=== PATIENT | female | born 1965 | race Caucasian/White ===

== ENCOUNTER → 2017-09-28 | Outpatient (CLI) | payer BC ==
[~2017-09-28] MED LIST: IBP800T PO; METR500T PO; ONDN4T PO; RANI-515 PO; SUCR1TAB PO
--- NOTE | 2017-09-29 18:12 | Diagnostic Imaging Report ---
Digital mammogram bilateral screening with 3-D tomosynthesis. This study was compared to the prior exam of 10/18/2011. At this time, there are no current complaints. The current study was also evaluated with a Computer Aided Detection (CAD) system. FINDINGS: The fibroglandular tissue in both breasts is heterogeneously dense. This does limit the sensitivity of this exam. Overall, there does not appear to have been any significant change when compared to the prior study. No primary or secondary sign of malignancy is noted. 3D tomographic images fail to show any sign of malignancy. IMPRESSION: 1. There is no radiographic evidence for malignancy. 2. The patient should have her annual mammogram on schedule in September of 2018. ACR BI-RADS Category 1: Negative. Result letter will be mailed to the patient. Note: At least 10% of breast cancer is not imaged by mammography. Dictated by: Dictated on workstation # [id number]
== END ==
LOC: RAD 11:14
PROVIDERS: ATTEND Nurse Practitioner Primary Care
DX: Z12.31 Encounter for screening mammogram for malignant neoplasm of breast (principal)
CPT/HCPCS: 77067

== ENCOUNTER → 2019-05-25 | Outpatient (CLI) | payer BC ==
[~2019-05-25] MED LIST changes: -RANI-515 PO; +RANI-609 PO
--- NOTE | 2019-05-25 13:48 | Diagnostic Imaging Report ---
INDICATION: Routine screening. Comparison is made with prior mammogram from 09/28/2017. 2-D and 3-D bilateral screening mammography was performed with CAD. Scattered fibroglandular densities are identified bilaterally. The parenchymal pattern is stable. No mass or malignant appearing microcalcifications are seen. Axillae are unremarkable. IMPRESSION: BI-RADS Category 1 No mammographic features suspicious for malignancy are identified. ACR BI-RADS Category 1: Negative. Result letter will be mailed to the patient. Note: At least 10% of breast cancer is not imaged by mammography. Dictated by: Dictated on workstation # [id number]
== END ==
LOC: RAD 10:12
PROVIDERS: ATTEND Nurse Practitioner Primary Care
DX: Z12.31 Encounter for screening mammogram for malignant neoplasm of breast (principal)
CPT/HCPCS: 77067

== ENCOUNTER → 2019-07-18 | Outpatient (CLI) | payer BC ==
[~2019-07-18] MED LIST changes: +BARIUM for suspension 96% w/w (Vanilla Silq Medium Density) PO ONE; +BARIUM for suspension 98% w/w (Vanilla Silq High Density) PO ONE
--- NOTE | 2019-07-18 13:20 | Diagnostic Imaging Report ---
INDICATION: Dysphagia. TECHNIQUE: The patient ingested effervescent crystals as well as thin and thick barium and imaging of the esophagus was performed. FLUOROSCOPY TIME: 1 minute and 23 seconds of fluoroscopic time was utilized. FINDINGS: The preliminary radiograph over the chest is unremarkable. The esophagus has a fairly smooth contour. No mass is identified. No definite stricture is seen. There are occasional tertiary contractions present. The patient does have a small hiatal hernia. No gastroesophageal reflux was demonstrated. IMPRESSION: Small hiatal hernia. There are also occasional tertiary contractions. No definite mass or stricture is seen. Dictated by: Dictated on workstation # [id number]
== END ==
LOC: RAD 09:02
PROVIDERS: ATTEND Surgery
DX: K44.9 Diaphragmatic hernia without obstruction or gangrene (principal); R13.10 Dysphagia, unspecified; K21.0 Gastro-esophageal reflux disease with esophagitis
CPT/HCPCS: 74220

== ENCOUNTER 2019-07-27 08:44 | Outpatient (RCR) | payer BC ==
[~2019-07-27] VITALS: Ht 167 cm; Wt 70.9 kg
[~2019-07-27 08:44] MED LIST changes: -BARIUM for suspension 96% w/w (Vanilla Silq Medium Density) PO ONE; -BARIUM for suspension 98% w/w (Vanilla Silq High Density) PO ONE; +LANS30CA43 PO; +NF-DICLOTA PO
== END 2019-07-27 14:40 | disposition home or self-care (01) ==
LOC: PREOP 08:44
PROVIDERS: ATTEND Surgery
DX: Z01.818 Encounter for other preprocedural examination (principal); Z11.59 Encounter for screening for other viral diseases; K21.9 Gastro-esophageal reflux disease without esophagitis
CPT/HCPCS: 87635

== ENCOUNTER 2019-07-31 07:49 | Day surgery (SDC) | payer BC ==
[~2019-07-31] VITALS: Ht 167 cm; Wt 70.9 kg
[2019-07-31] VITALS (7 sets, daily range): BP systolic 130–174; BP diastolic 68–99
[2019-07-31] MEDS ORDERED: LACTATED RINGERS 1,000 ML IV ONE (07:50)
[2019-07-31] MEDS ORDERED: HURRICAINE EXT TUBE (BENZOCAINE) XX PRN (08:15)
[2019-07-31] MEDS ORDERED: LACTATED RINGERS 1,000 ML IV PRN (08:15)
--- NOTE | 2019-07-31 08:42 | Progress Note-Pre Operative ---
Pre-Operative Progress Note H&P Reviewed The H&P was reviewed, patient examined and no changes noted. Date Seen by Provider: July 31, 2019 Time Seen by Provider: 08:41 Date H&P Reviewed: July 31, 2019 Time H&P Reviewed: 08:41 Pre-Operative Diagnosis: dysphagia, gerd, screening colonoscopy ALEX KIRBY DO July 31, 2019 08:42
[2019-07-31] MEDS ORDERED: MIDAZOLAM 2 MG/2 ML (VERSED) VIAL ONE (08:57)
[2019-07-31] MEDS ORDERED: proPOfol 200 MG/20 ML (DIPRIVAN) VIAL IV ONE (08:57)
[2019-07-31] MEDS ORDERED: PANT40TA2 PO (09:41)
--- NOTE | 2019-07-31 09:42 | Discharge Inst-Simple/Standard ---
Discharge Inst-Standard Discharge Medications New, Converted or Re-Newed RX: Transmitted to Pharmacy Patient Instructions/Follow Up Plan of Care/Instructions/FU: Wilbur 2-3 weeks. Activity as Tolerated: Yes Discharge Diet: Regular Diet ALEX KIRBY DO July 31, 2019 09:42
--- NOTE | 2019-07-31 09:46 | Progress Note-Post Operative ---
Post-Operative Progess Note Surgeon (s)/Child Development Director (s) Surgeon ALEX KIRBY DO Child Development Director: na Pre-Operative Diagnosis dysphagia, gerd, screening colonoscopy Post-Operative Diagnosis duodenitis, hiatal hernia, eophagitis (EE?) colon polyp x Procedure & Operative Findings Date of Procedure 07/31/19 Procedure Performed/Findings egd c biopsies, colonoscopy c hot bx polypectomy x 2 Anesthesia Type per mda Estimated Blood Loss Estimated blood loss (mL): scant Specimens/Packing Specimens Removed antrum, ge, esophagus, sigmoid and rectal polyp ALEX KIRBY DO July 31, 2019 09:46
[2019-07-31] MEDS ORDERED: ONDANSETRON 4 MG/2 ML (SDV) Z0FRAN ONE (10:01)
[2019-07-31] MEDS ORDERED: ONDANSETRON 4 MG/2 ML (SDV) Z0FRAN IVP ONE (10:15)
--- NOTE | 2019-07-31 11:08 | Anesthesia-General Post-Op ---
MAC Patient Condition Mental Status/LOC: Same as Preop Cardiovascular: Satisfactory Nausea/Vomiting: Absent Respiratory: Satisfactory Pain: Controlled Complications: Absent Post Op Complications Complications None Follow Up Care/Instructions Patient Instructions None needed. Anesthesiology Discharge Order Discharge Order Patient was seen this morning after the procedure and she was doing well, no complaints, stable vital signs, no apparent adverse anesthesia problems. MIRNA MULLER DO July 31, 2019 11:08
--- NOTE | 2019-07-31 18:17 | OPERATIVE REPORT ---
DATE OF SERVICE: 07/31/2019 PREOPERATIVE DIAGNOSES: Dysphagia, gastroesophageal reflux disease, screening colonoscopy. POSTOPERATIVE DIAGNOSES: Duodenitis, hiatal hernia, esophagitis, questionable eosinophilic esophagitis, colon polyp x2. PROCEDURE: EGD with biopsies, colonoscopy with hot biopsy polypectomy x2. SURGEON: Alex Bowles DO ANESTHESIA: Per MDA. ESTIMATED BLOOD LOSS: Scant. COMPLICATIONS: None. INDICATIONS: The patient is a 53-year-old female with some dysphagia and reflux symptoms. She has never had screening colonoscopy. She understands risks and benefits of procedure and wished to proceed with procedure. Consent was signed in the chart. DESCRIPTION OF PROCEDURE: The patient was taken to the endoscopy suite, placed in left lateral recumbent position. Timeout was performed. Scope was inserted in mouth, down the esophagus, stomach and into the duodenum without difficulty. There were slight erythematous changes consistent with duodenitis present in the esophagus. No polyps, masses or ulcerations. Scope was then slowly retracted back into the stomach where it was further insufflated. Biopsy of the antrum was obtained. Scope was retroflexed noting hiatal hernia, no other polyps, masses or ulcerations. Scope was returned to its normal position, slowly withdrawn to the distal esophagus, which had some slight erythematous changes. Biopsy of GE junction was obtained. Scope was then continuously retracted back. Some changes suggestive of eosinophilic esophagitis, some trachealization of the esophagus present. Biopsy of the esophagus was obtained. Scope was then slowly retracted back until completely removed. Scope was then slowly retracted back until completely removed. Digital rectal exam was performed. There were no palpable polyps, masses or ulcerations. Scope was inserted in the rectum and advanced all the way to cecum with minimal difficulty. Prep was adequate. Scope was then slowly retracted back. There were no polyps, masses or ulcerations within the cecum, ascending, transverse and descending colon. In the sigmoid, small polyp was present, which hot biopsy polypectomy was performed. Scope was then continuously slowly retracted back in the rectum where another small polyp was present, which hot biopsy polypectomy was performed. Scope was retroflexed noting no other pathology. Scope was returned to its normal position, slowly withdrawn until completely removed. The patient tolerated procedure well without any complications. She was taken to recovery room in stable condition. RECOMMENDATIONS: The patient will be started on Protonix 40 mg daily. We will stop the Prevacid. We will await biopsy results. The patient will need repeat colonoscopy in 5 years. Any issues before that be seen at that time. The patient has followup in 2 to 3 weeks. Job ID: [id number] DocumentID: [id number] Dictated Date: 07/31/2019 09:50:23 Software Program Manager Date: 07/31/2019 18:16:47 Dictated By: ALEX BOWLES DO
== END 2019-07-31 10:40 | disposition home or self-care (01) ==
LOC: ENDO 07:49
PROVIDERS: ATTEND Surgery
DX: Z12.11 Encounter for screening for malignant neoplasm of colon (principal); K63.5 Polyp of colon; K62.1 Rectal polyp; K29.80 Duodenitis without bleeding; K44.9 Diaphragmatic hernia without obstruction or gangrene; K21.0 Gastro-esophageal reflux disease with esophagitis; M19.91 Primary osteoarthritis, unspecified site; M54.5 Low back pain; Z87.891 Personal history of nicotine dependence; Z79.899 Other long term (current) drug therapy
CPT/HCPCS: 84703

== ENCOUNTER → 2022-04-14 | Outpatient (CLI) | payer BC ==
[~2022-04-14] MED LIST changes: +PANT40TA2 PO
--- NOTE | 2022-04-14 17:19 | Diagnostic Imaging Report ---
INDICATION: Routine screening. COMPARISON: Prior mammograms from 05/25/2019 and 09/28/2017. EXAMINATION: 2D and 3D bilateral screening mammography was performed with CAD. The current study was also evaluated with a Computer Aided Detection (CAD) system. FINDINGS: Perhaps scattered fibroglandular densities are identified, bilaterally. The parenchymal pattern is stable. No mass or malignant-appearing microcalcifications are seen. Axillae are unremarkable. IMPRESSION: No mammographic features suspicious for malignancy are identified. ACR BI-RADS Category 1: Negative. Result letter will be mailed to the patient. Note: At least 10% of breast cancer is not imaged by mammography. Dictated by: Dictated on workstation # [id number]
== END ==
LOC: RAD 14:00
PROVIDERS: ATTEND Surgery
DX: Z12.31 Encounter for screening mammogram for malignant neoplasm of breast (principal)
CPT/HCPCS: 77063; 77067